=== PATIENT | female | born 2005 | race Two or more races ===

== ENCOUNTER 2024-04-03 14:35 | Outpatient (CLI) | payer OTHER | END 2024-04-03 14:36 | disposition home or self-care (01) | LOC: PRENATAL 14:35 | PROVIDERS: ATTEND Obstetrics & Gynecology Maternal & Fetal Medicine | DX: O26.843 Uterine size-date discrepancy, third trimester (principal); O36.8130 Decreased fetal movements, third trimester, not applicable or unspecified; O99.343 Other mental disorders complicating pregnancy, third trimester; F99 Mental disorder, not otherwise specified; Z3A.32 32 weeks gestation of pregnancy ==